=== PATIENT | female | born 1960 | race Two or more races ===

== ENCOUNTER 2017-10-07 09:53 | Emergency (ER) | payer OTHER ==
[~2017-10-07] VITALS: Ht 167.6 cm; Wt 62.1 kg
[~2017-10-07 09:53] MED LIST: FORTAMET1000 MG; HUMALOG100 UNIT/1; LEVEMIR100 UNIT/1; SIMVASTATIN40 MG
[2017-10-07] MEDS ORDERED: ZITHROMAX500 MG PO (11:57)
[2017-10-07] MEDS ORDERED: FLONASE ALLERG9.9 ML NASAL (11:57)
[2017-10-07] MEDS ORDERED: PROMETH-CODEIN 65 ML PO (11:57)
[2017-10-07] MEDS ORDERED: TESSALON PERLE100 M1 PO (11:57)
== END 2017-10-07 12:35 | disposition home or self-care (01) ==
LOC: ER 09:53
DX: J06.9 Acute upper respiratory infection, unspecified (principal); J01.20 Acute ethmoidal sinusitis, unspecified

== ENCOUNTER 2022-10-13 20:27 | Emergency (ER) | payer OTHER ==
[~2022-10-13] VITALS: Ht 167.6 cm; Wt 62.6 kg
[~2022-10-13 20:27] MED LIST changes: +FLONASE ALLERG9.9 ML NASAL; +PROMETH-CODEIN 65 ML PO; +TESSALON PERLE100 M1 PO; +ZITHROMAX500 MG PO
[2022-10-13] MEDS ORDERED: INSULIN AS100 UNIT/2 IV (20:41)
[2022-10-13] MEDS ORDERED: SYNTHROID75 MCG PO (20:41)
[2022-10-13] MEDS ORDERED: LANTUS SOL100 UNIT/1 SQ (20:42)
== END 2022-10-13 22:27 | disposition home or self-care (01) ==
LOC: ER 20:27
DX: H00.011 Hordeolum externum right upper eyelid (principal)